=== PATIENT | female | born 1965 | race Caucasian/White ===

== ENCOUNTER 2017-09-04 14:13 | Emergency (ER) | payer SELFPAY ==
[2017-09-04 15:31] LABS: BILIRUBIN,URINE NEGATIVE (NEG); CLARITY,URINE CLOUDY; COLOR,URINE YELLOW; GLUCOSE,URINE NEGATIVE (NEG); NITRITE,URINE NEGATIVE (NEG); PROTEIN,URINE NEGATIVE (NEG-TRACE); UROBILINOGEN,URINE 0.2 mg/dL (0.2 mg/dL)
[2017-09-04 15:42] LABS: ANION GAP 13 (6-14); BLOOD UREA NITROGEN 11 mg/dL (7-20); BUN/CREATININE RATIO 16 (6-20); CALCIUM 10.1 mg/dL (8.5-10.1); CARBON DIOXIDE 23 mmol/L (21-32); CHLORIDE 105 mmol/L (98-107); CREATININE 0.7 mg/dL (0.6-1.0); GFR 88.2; GLUCOSE 114 mg/dL (70-99); POTASSIUM 3.4 mmol/L (3.5-5.1); SODIUM 141 mmol/L (136-145)
[2017-09-04 15:46] LABS: BASO % 0 % (0-3); EOS # 0.1 x10^3/uL (0.0-0.7); EOS % 1 % (0-3); HEMATOCRIT 43.4 % (36.0-47.0); HEMOGLOBIN 14.8 g/dL (12.0-15.5); LYMPH # 3.8 x10^3/uL (1.0-4.8); LYMPH % 30 % (24-48); MEAN CORPUSCULAR HEMOGLOBIN 32 pg (25-35); MEAN CORPUSCULAR HGB CONC 34 g/dL (31-37); MEAN CORPUSCULAR VOLUME 94 fL (79-100); MONO # 0.5 x10^3/uL (0.0-1.1); MONO % 4 % (0-9); NEUT # 8.3 x10^3uL (1.8-7.7); NEUT % 65 % (31-73); PLATELET COUNT 397 x10^3/uL (140-400); RED BLOOD COUNT 4.61 x10^6/uL (3.50-5.40); WHITE BLOOD COUNT 12.8 x10^3/uL (4.0-11.0)
[2017-09-04 15:47] LABS: ALBUMIN 4.1 g/dL (3.4-5.0); ALBUMIN/GLOBULIN RATIO 0.9 (1.0-1.7); ALK PHOS 113 U/L (46-116); ALT (SGPT) 20 U/L (14-59); AST (SGOT) 21 U/L (15-37); TOTAL BILIRUBIN 0.2 mg/dL (0.2-1.0); TOTAL PROTEIN 8.8 g/dL (6.4-8.2)
[2017-09-04 15:49] LABS: ADD MAN DIFF? YES
[2017-09-04 15:56] LABS: TROPONINI < 0.017 ng/mL (0.000-0.055)
[2017-09-04 15:56] LABS: SQUAMOUS EPITHELIAL CELL,UR FEW /LPF
[2017-09-04 15:57] LABS: BACTERIA,URINE 0 /HPF (0-FEW); RBC,URINE OCC /HPF (0-2); WBC,URINE 0 /HPF (0-4)
[2017-09-04] MEDS: diphenhydrAMINE 50 MG/ML VIAL IVP (16:02)
[2017-09-04] MEDS: IV NORMAL SALINE 1000ML BAG 1,000 ML IV (16:02)
[2017-09-04] MEDS: METOCLOPRAMIDE HCL 10 MG/2 ML VIAL. IV (16:03)
[2017-09-04 16:25] LABS: % LYMPHS 31 % (24-48); % MONOS 4 % (0-10); % SEGS 65 % (35-66)
[2017-09-04 16:26] LABS: PLT ESTIMATE ADEQUATE (ADEQUATE)
== END 2017-09-04 17:03 | disposition home or self-care (01) ==
LOC: ER 14:13
DX: R51 Headache (principal); I10 Essential (primary) hypertension; M32.9 Systemic lupus erythematosus, unspecified; F12.10 Cannabis abuse, uncomplicated; F17.200 Nicotine dependence, unspecified, uncomplicated; Z88.2 Allergy status to sulfonamides
CPT/HCPCS: 36415; 80053; 81001; 84484; 85007; 85025; 93005; 96361; 96374; 96376; 99285-25; J1200; J2765; J7030

== ENCOUNTER 2018-12-25 03:29 | Emergency (ER) | payer SELFPAY ==
[~2018-12-25] VITALS: Ht 147.3 cm; Wt 43.5 kg
[~2018-12-25 03:29] MED LIST: IBUP-1027 PO
[2018-12-25 03:37] VITALS: BP 141/101
[2018-12-25] MEDS ORDERED: HYDR-3164 PO (04:06)
[2018-12-25] MEDS ORDERED: KETOROLAC 30 MG/ML VIAL. IM ONE (04:30)
--- NOTE | 2018-12-25 04:33 | PHYS DOC ---
Past Medical History Past Medical History: Hypertension, Other Additional Past Medical Histor: LUPUS Past Surgical History: Cholecystectomy, Hysterectomy, Tubal ligation, Other Additional Past Surgical Histo: WISDOM TEETH. Alcohol Use: Occasionally Drug Use: Marijuana Adult General Chief Complaint Chief Complaint: DENTAL PROBLEM HPI HPI Patient is a 53 year old female presenting with tooth pain she was trying to get her tooth pulled but it's too expensive she []she is wondering if I can pull the tooth in the emergency room. She has been using [place] as well as amoxicillin with minimal relief pain is right upper and lower jaw and radiates diffusely no fever SHARP Review of Systems Review of Systems Constitutional: Denies fever or chills [] Eyes: Denies change in visual acuity, redness, or eye pain [] HENT: Denies nasal congestion or sore throat [] Respiratory: Denies cough or shortness of breath [] All other systems were reviewed and found to be within normal limits, except as documented in this note. Current Medications Current Medications Current Medications Medications (Trade) Dose Ordered Sig/Vickie Start Time Stop Time Status Last Admin Dose Admin Ketorolac Tromethamine (Toradol 30mg Vial) 30 mg 1X ONCE 12/25/18 04:30 12/25/18 04:31 12/25/18 04:24 30 MG Allergies Allergies Allergies Coded Allergies Type Severity Reaction Last Updated Verified Sulfa (Sulfonamide Antibiotics) Allergy Intermediate 09/04/17 Yes Physical Exam Physical Exam Constitutional: Well developed, well nourished, no acute distress, non-toxic appearance. [] HENT: Normocephalic, atraumatic, bilateral external ears normal,POOR DENTITION CRACKED TOOTH NOTED, NO ABSCESS, NO FACIAL SWELLING Eyes: PERRLA, EOMI, conjunctiva normal, no discharge. [] Neck: Normal range of motion, no tenderness, supple, no stridor. [] Extremities: No tenderness, no cyanosis, no clubbing, ROM intact, no edema. [] Neurologic: Alert and oriented X 3, normal motor function, normal sensory function, no focal deficits noted. [] Psychologic: Affect normal, judgement normal, mood normal. [] Current Patient Data Vital Signs Vital Signs Date Time Temp Pulse Resp B/P (MAP) Pulse Ox O2 Delivery O2 Flow Rate FiO2 12/25/18 03:37 97.7 114 20 141/101 (114) 97 97.7 EKG EKG [] Radiology/Procedures Radiology/Procedures [] Course & Med Decision Making Course & Med Decision Making Pertinent Labs and Imaging studies reviewed. (See chart for details) []GIVEN DENTAL FOLLOW UP LIST GIVEN TORADOL RX NORCO ALREADY BEEN TAKING AMOXICILLIN NO OBVIOUS INFECTION IDENTIFEID Jason Disclaimer Dragon Disclaimer This electronic medical record was generated, in whole or in part, using a voice recognition dictation system. Departure Departure Impression: Primary Impression: Toothache Disposition: HOME, SELF-CARE Condition: STABLE Patient Instructions: Toothache-Brief Scripts Hydrocodone/Apap 5-325 (NORCO 5-325 TABLET) 1 Each Tablet 1-2 EACH PO PRN Q6HRS PRN for PAIN, #15 as needed for pain Prov: LONNIE REYNA MD 12/25/18 LONNIE REYNA MD Dec 25, 2018 04:33
== END 2018-12-25 04:30 | disposition home or self-care (01) ==
LOC: ER 03:29
DX: K08.89 Other specified disorders of teeth and supporting structures (principal); K03.81 Cracked tooth; I10 Essential (primary) hypertension; Z88.2 Allergy status to sulfonamides
CPT/HCPCS: 96372; 99283; J1885

== ENCOUNTER 2019-01-02 23:02 | Emergency (ER) | payer SELFPAY ==
[~2019-01-02] VITALS: Ht 147.3 cm; Wt 43.5 kg
[~2019-01-02 23:02] MED LIST changes: +HYDR-3164 PO
[2019-01-02 23:57] VITALS: BP 141/101
--- NOTE | 2019-01-03 01:41 | PHYS DOC ---
Past Medical History Past Medical History: Hypertension, Other Additional Past Medical Histor: LUPUS Past Surgical History: Cholecystectomy, Hysterectomy, Tubal ligation, Other Additional Past Surgical Histo: WISDOM TEETH. Alcohol Use: Occasionally Drug Use: Marijuana Adult General Chief Complaint Chief Complaint: DENTAL PROBLEM HPI HPI Patient is a 53 year old female who presents to the emergency department with complaints of right lower quadrant dental pain for several weeks. Patient states she went to see a dentist and he refuses to pull the tooth. Patient demanding to have a dental block in the emergency department advised patient that a dental block would not be done. Patient became very upset and irate demanded to speak with the doctor. Began to swear at nursing staff Review of Systems Review of Systems Constitutional: Denies fever or chills [] HENT: see HPI \ Allergies Allergies Allergies Coded Allergies Type Severity Reaction Last Updated Verified Sulfa (Sulfonamide Antibiotics) Allergy Intermediate 09/04/17 Yes Physical Exam Physical Exam Constitutional: Well developed, well nourished, no acute distress, non-toxic appearance. [] HENT: Normocephalic, atraumatic, bilateral external ears normal, oropharynx moist, no oral exudates, nose normal; no erythema or gingival edema or abscess surrounding tooth #30, tooth #30 appears to be broken, tooth #30 tender to palpation, no facial swelling. [] Eyes: conjunctiva normal, no discharge. [] Lungs & Thorax: Respirations even and unlabored, no retractions, no respiratory distress Skin: Warm, dry, no erythema, no rash. [] Extremities: No cyanosis, ROM intact, Neurologic: Alert and oriented X 3, no focal deficits noted. [] Psychologic: patient agitated and confrontational Current Patient Data Vital Signs Vital Signs Date Time Temp Pulse Resp B/P (MAP) Pulse Ox O2 Delivery O2 Flow Rate FiO2 01/02/19 23:57 97.3 98 20 141/101 (114) 98 Room Air 97.3 EKG EKG [] Radiology/Procedures Radiology/Procedures [] Course & Med Decision Making Course & Med Decision Making Pertinent Labs and Imaging studies reviewed. (See chart for details) dx: AMA Patient was demanding a dental block, offered to give patient by mouth pain medication. Patient stated that is not what she wants she became very irate with this nurse practitioner and began swearing at myself and the nursing staff. Patient left AMA after being informed that no dental block would be given [] Dragon Disclaimer Dragon Disclaimer This electronic medical record was generated, in whole or in part, using a voice recognition dictation system. Departure Departure Impression: Primary Impression: Left against medical advice Disposition: 07 AGAINST MEDICAL ADVICE Condition: STABLE [place] [facility] [employer] Jan 03, 2019 01:41
== END 2019-01-03 00:23 | disposition left against medical advice (07) ==
LOC: ER 23:02
DX: K08.89 Other specified disorders of teeth and supporting structures (principal); I10 Essential (primary) hypertension; Z90.49 Acquired absence of other specified parts of digestive tract; Z90.710 Acquired absence of both cervix and uterus; Z98.51 Tubal ligation status; Z88.2 Allergy status to sulfonamides
CPT/HCPCS: 99281